=== PATIENT | male | born 1995 | race Caucasian/White ===

== ENCOUNTER 2017-09-20 16:36 | Emergency (ER) | payer OTHER ==
[2017-09-20] MEDS: NS 1,000 ML IV (17:15)
[2017-09-20] MEDS: KETOROLAC 30 MG/ML VIAL (J1885) IV (17:45)
[2017-09-20 18:01] LABS: BASO % 0.2 % (0.0-1.0); EOS # 0.2 10^3/uL (0.0-0.50); EOS % 1.6 % (0.0-3.0); HEMATOCRIT 44.5 % (42.0-52.0); HEMOGLOBIN 15.1 g/dl (14.0-18.0); IMMATURE GRANULOCYTE # 0.1 10^3/uL (0-0); IMMATURE GRANULOCYTE % 0.4 % (0-0); LYMPH # 1.7 10^3/uL (1.5-6.5); LYMPH % 11.2 % (24.0-44.0); MEAN CORPUSCULAR HEMOGLOBIN 32.8 pg (27.0-33.0); MEAN CORPUSCULAR HGB CONC 33.9 g/dl (32.0-36.5); MEAN CORPUSCULAR VOLUME 96.7 fl (80.0-96.0); MONO % 6.4 % (0.0-5.0); NEUTROPHILS # 12.2 10^3/uL (1.8-7.7); NEUTROPHILS % 80.2 % (36.0-66.0); PLATELET COUNT, AUTOMATED 276 10^3/uL (150-450); RED CELL DISTRIBUTION WIDTH 11.8 % (11.5-14.5); WHITE BLOOD COUNT 15.2 10^3/uL (4.0-10.0)
[2017-09-20 18:22] LABS: ANION GAP 8 MEQ/L (8-16); BLOOD UREA NITROGEN 10 MG/DL (7-18); C REACTIVE PROTEIN QUANTITATIV 7.65 MG/DL (0.00-0.30); CALCIUM LEVEL 9.4 MG/DL (8.5-10.1); CARBON DIOXIDE LEVEL 29 MEQ/L (21-32); CHLORIDE LEVEL 101 MEQ/L (98-107); CREATININE FOR GFR 0.82 MG/DL (0.70-1.30); GLUCOSE, FASTING 87 MG/DL (70-105); POTASSIUM SERUM 4.1 MEQ/L (3.5-5.1); SODIUM LEVEL 138 MEQ/L (136-145)
[2017-09-20] MEDS ORDERED: ISOVUE-370 76% 100ML VIAL (Q9967) As Ordered (18:25)
[2017-09-20] MEDS: CLINDAMYCIN 900 MG in APPROPRIATE DILUENT 1 EA IV (18:42)
[2017-09-20] MEDS: dexameTHASONE 20 MG/5 ML VIAL (J1100) IV (19:49)
== END 2017-09-20 20:09 | disposition home or self-care (01) ==
LOC: M ED 16:36
DX: J03.90 Acute tonsillitis, unspecified (principal); J35.1 Hypertrophy of tonsils; R07.0 Pain in throat
CPT/HCPCS: J1100

== ENCOUNTER 2017-09-21 11:15 | Emergency (ER) | payer OTHER | END 2017-09-21 12:02 | disposition home or self-care (01) | LOC: M ED 11:15 | DX: J03.90 Acute tonsillitis, unspecified (principal) | CPT/HCPCS: 99282 ==

== ENCOUNTER 2018-05-30 07:00 | Day surgery (SDC) | payer OTHER ==
[2018-05-30] MEDS ORDERED: ROCURONIUM BROMIDE 50 MG/5 ML VIAL As Ordered (07:18)
[2018-05-30] MEDS ORDERED: LIDOCAINE 2% INJ 100 MG/5 ML SDV (FOR ANES.) As Ordered (07:18)
[2018-05-30] MEDS: LR 1,000 ML IV (07:20)
[2018-05-30] MEDS ORDERED: dexameTHASONE 4 MG/ML 1ML VIAL (J1100) As Ordered ×2 (07:21)
[2018-05-30] MEDS ORDERED: MIDAZOLAM INJ 2 MG/2 ML VIAL (J2250) As Ordered (08:05)
[2018-05-30] MEDS ORDERED: fentaNYL 250 MCG/5 ML INJECTION (J3010) As Ordered (08:06)
[2018-05-30] MEDS ORDERED: ONDANSETRON 4MG/2ML VIAL (J2405) As Ordered (08:07)
[2018-05-30] MEDS ORDERED: PROPOFOL 200 MG/20 ML VIAL As Ordered ×2 (08:07→08:41)
[2018-05-30] MEDS: BUPIVACAINE/EPIN 0.5% 30 ML VIAL As Ordered (08:32)
[2018-05-30] MEDS: LIDOCAINE W/EPINEPHRINE 1% 20ML VIAL As Ordered (08:32)
[2018-05-30] MEDS ORDERED: fentaNYL 100 MCG/2 ML INJECTION (J3010) IV (09:30)
[2018-05-30] MEDS ORDERED: ACETAMINOPH W/CODEINE #3 TAB UD PO (09:30)
[2018-05-30] MEDS ORDERED: ONDANSETRON 4MG/2ML VIAL (J2405) IV (09:30)
[2018-05-30] MEDS ORDERED: HYDROMORPHONE HCL 0.5 MG/ 0.5 ML SYRINGE (J1170 PER 1) IV (09:30)
[2018-05-30] MEDS ORDERED: PERCOCET 5MG/325MG TAB PO (09:30)
[2018-05-30] MEDS ORDERED: LR 1,000 ML IV ×2 (09:30)
[2018-05-30] MEDS: IBUPROFEN 100 MG/5 ML SUSP UDC DYE FREE PO (10:00)
== END 2018-05-30 10:25 | disposition home or self-care (01) ==
LOC: M SDC 07:00
DX: J35.01 Chronic tonsillitis (principal); Z87.891 Personal history of nicotine dependence
CPT/HCPCS: 42826